=== PATIENT | female | born 1960 | race African-American/Black ===

== ENCOUNTER 2017-01-31 13:12 | Emergency (ER) ==
[2017-01-31 13:22] VITALS: BP 123/76
--- NOTE | 2017-01-31 14:54 | PROVIDER DOCUMENTATION ---
HPI-Respiratory General - General Chief Complaint: Cold Symptoms Stated Complaint: TIGHTNESS OF CHEST, CONGESTED Time Seen by Provider: 01/31/17 14:47 Source: patient, family Allergies/Adverse Reactions: Patient Allergies Allergy/AdvReac Type Severity Reaction Status Date / Time No Known Allergies Allergy Verified 01/31/17 13:22 Home Medications: Home Medication List Medication Instructions Recorded Confirmed Last Taken Type Acetaminophen with Codeine 1 tbs PO PRN PRN 01/31/17 01/31/17 Unknown History [Tylenol with Codeine #3] Albuterol Sulfate Inhaler 2 puff INH Q6H PRN PRN #1 inhaler 01/31/17 Unknown Rx [Ventolin Hfa] Azithromycin [Zithromax] 250 mg PO DAILY #4 tablet 01/31/17 Unknown Rx Benzonatate [Tessalon] 100 mg PO TID PRN PRN #20 capsule 01/31/17 Unknown Rx Methylprednisolone [Medrol Dosepak] 4 mg PO DIRECTED #1 package 01/31/17 Unknown Rx Zolpidem [Ambien] 5 mg PO QHS 01/31/17 01/31/17 Unknown History - History of Present Illness-Resp Nature of Presenting Problem: 57 year old AAF presents with c/o cough x 2 days, non-productive, fever to 101.9 at home, vomiting x 1 this AM after excessive cough. pt reports wheezing, shortness with cough and pain with inspiration/expiration. Quality of Pain: reports: aching (with coughing only) Severity in ED: reports: mild Onset/Duration: reports: 2 days ago Timing: reports: still present, constant, getting worse Context: reports: recent URI Exposure: reports: unknown cause Cough Quality/Degree: reports: severe, dry cough. denies: productive cough, sputum, blood streaked sputum Episode Frequency: occasional episodes Current Respiratory Medication Therapy: Initiated albuterol (pt reports she tried an inhaler she had at home without relief) Modifying Factors: improves with: nothing Associated Symptoms: reports: chest pain/soreness, cough, fever/chills, flu- like symptoms, shortness of breath, short of breath, sore throat, wheezing Similar Symptoms Previously?: Yes Recently seen or treated by another doctor?: No Review of Systems - Adult - REVIEW OF SYSTEMS - ADULT Constitutional: reports: see HPI, chills, fever. denies: fatique Eyes: reports: no symptoms reported. denies: discharge, blurred vision, double vision, redness Ears, Nose, Mouth & Throat: reports: see HPI, throat pain, throat swelling. denies: ear discharge, ear pain, nose pain, loose teeth Cardiovascular: reports: no symptoms reported. denies: chest pain, palpitations , syncope Respiratory: reports: see HPI, cough, shortness of breath, wheezing. denies: chronic cough, dyspnea on exertion, excessive sputum production, hemoptysis, pleurisy Gastrointestinal: reports: see HPI, vomiting. denies: abdominal pain, hematemesis, diarrhea, difficulty swallowing, frequent heartburn, nausea, poor appetite Genitourinary: reports: no symptoms reported. denies: dysuria, hematuria, urgency Musculoskeletal: reports: no symptoms reported. denies: bone pain, joint pain, joint swelling Integumentary: reports: no symptoms reported. denies: hives, mole changes, nail changes Neurological: reports: no symptoms reported. denies: ataxia, dizziness/vertigo , headache/migraines Psychiatric: reports: no symptoms reported Endocrine: reports: no symptoms reported. denies: increased thirst, polyuria Hematologic/Lymphatic: reports: no symptoms reported. denies: swollen lymph nodes Allergic/Immunologic: reports: no symptoms reported. denies: frequent infections All Other Systems: Reviewed and Negative Past History - Adult - PAST MEDICAL HISTORY-ADULT Review of Records: reports: Old Records Reviewed, Nursing Assessment Review, Medications Reviewed, Social history reviewed & non-contributory. Major Childhood Illnesses: reports: denies history Cardiovascular: reports: hyperlipidemia Respiratory: reports: denies history Gastrointestinal: reports: GERD Obstetrical/Gynecological: reports: denies history Genitourinary: reports: denies history Musculoskeletal: reports: denies history Neurological: reports: headaches/migraines Endocrine/Immune: reports: denies history Other Conditions: reports: denies history - PRIOR SURGERIES/PROCEDURES Surgical/Procedure History: reports: cholecystectomy, hysterectomy - PRIOR HOSPITALIZATIONS Prior Hospitalizations: reports: for other non-related - IMMUNIZATION STATUS Childhood Immunizations: See Nurse Assessment Flu Vaccine: See Nurse Assessment - FAMILY HISTORY Family History: reviewed, not pertinent - SOCIAL HISTORY Smoking: denies, quit less than 1 year, cigarettes Substance Use: none/never Alcohol Use Frequency: never Physical Exam-General - PHYSICAL EXAM-ADULT Initial Vital Signs Reviewed: Yes - CONSTITUTIONAL General Appearance: appears well, alert, mild distress, moderate distress. negative: no apparent distress, severe distress - EYES Eyes: pink conjunctivae. negative: conjuctival exudate - HEAD, EARS, NOSE, MOUTH & THROAT HENMT: normocephalic/atraumatic, moist mucous membranes, normal ENT inspection, TMs normal, pharyngeal erythema. negative: pharynx normal, tonsillar exudate, frontal tenderness, maxillary tenderness - NECK Neck: non-tender, full range of motion, supple, normal inspection. negative: C- spine tenderness, limited range of motion, tender lateral, tender midline - RESPIRATORY Respiratory: chest non-tender, no pleuratic chest pain, no respiratory distress , no accessory muscle use, decreased breath sounds, rhonchi, wheezing. negative : lungs clear, normal breath sounds, respiratory distress, accessory muscle use , crackles, rales, stridor - CARDIOVASCULAR Cardiovascular: normal peripheral pulses, regular rate, rhythm, no edema, tachycardia - CHEST (BREASTS) Chest/Breast: tenderness (with deep inspiration) - GASTROINTESTINAL (ABDOMEN) Abdominal Exam: normal bowel sounds, non tender, soft - GENITOURINARY Female Genitalia/Pelvic Exam: deferred Rectal Exam: deferred Hemoccult Exam: deferred - MUSCULOSKELETAL Back Exam: normal inspection, no CVA tenderness, no vertebral tenderness. negative: CVA tenderness, decreased range of motion, swelling, vertebral tenderness Extremity: normal range of motion, non-tender, normal gait, normal inspection, no pedal edema, no calf tenderness, normal capillary refill Peripheral Pulses: radial (R): 3+, radial (L): 3+, dorsalis-pedis (R): 3+, dorsalis-pedis (L): 3+ - SKIN Integumentary: normal color, normal turgor, warm/dry - NEUROLOGIC Neurologic: grossly normal, no motor/sensory deficits - PSYCHIATRIC Psych/Mental Status: normal mood/affect, normal thought content, normal thought process, oriented x 3 Progress - PLAN OF CARE/RESULTS Progress/Plan/Lab Results: Laboratory Tests 01/31/17 01/31/17 15:23 15:23 Influenza A (Rapid) NEGATIVE Influenza B (Rapid) NEGATIVE Group A Strep Rapid NEGATIVE Orders Category Date Time Status cxr [CHEST-2 VIEWS] [RAD] Stat Exams 01/31/17 14:[address] Stat Lab 01/31/17 15:[address] Stat Lab 01/31/17 15:23 Completed Albuterol 2.5MG/Ipratrop 0.5MG [Duoneb (A & A)] Med 01/31/17 14:56 Discontinued 3 ml INH NOW ONE Aerosol Treatments Routine Oth 01/31/17 14:56 Active Aerosol Treatments Stat Oth 01/31/17 14:56 Active Vital Signs - 24 hr 01/31/17 01/31/17 13:17 15:00 Temperature 98.3 F Pulse Rate 110 H 109 H Respiratory 19 20 Rate Blood Pressure 123/76 O2 Sat by Pulse 96 99 Oximetry - REASSESSMENT Reassessment #1 Time Reassessed: 17:01 Status: improving (decreased wheezing, increased air movement bilaterally) - XRAY 1 XRAY Study: Chest Impression: Normal Departure - Departure Time of Disposition Order: 17:02 DIAGNOSIS: Bronchitis Disposition: HOME 01 Certified Medical Emergency: Emergent Condition: Stable Additional Instructions: Follow up with your primary care doctor this week. ED Follow Up Instructions: You have been treated by a care provider in the Emergency Department. These instructions are being provided to you so you can have an understanding of how to care for yourself upon discharge. Upon discharge from the Emergency Department, you are responsible for making arrangements for follow-up care by a physician of your choice. Take all prescribed medications as directed. Return to the Emergency Department immediately for any new or worsening symptoms. You may call the Physician Referral phone number at [phone] to obtain a list of Physicians who are taking new patients. Prescriptions: Methylprednisolone [Medrol Dosepak] 4 mg PO DIRECTED #1 package Benzonatate [Tessalon] 100 mg PO TID PRN PRN #20 capsule PRN Reason: Cough Albuterol Sulfate Inhaler [Ventolin Hfa] 2 puff INH Q6H PRN PRN #1 inhaler PRN Reason: Wheezing Azithromycin [Zithromax] 250 mg PO DAILY #4 tablet Attestation - Physician/ PHUONG Attestation Patient care was provided by Advanced Practice Provider:: Yes Advanced Practice Provider:: Jackson Soto Advanced Practice Provider documentation review:: The Mid-level provider documentation, treatment plan and medical decision making was reviewed by the physician who agrees with all treatment and medical decision making by the MLP.
[2017-01-31] MEDS ORDERED: DUONEB (A & A) INH ONE (14:56)
[2017-01-31] MEDS ORDERED: ZITHROMAX PO ONE (17:02)
[2017-01-31] MEDS ORDERED: PREDNISONE PO ONE (17:02)
[2017-01-31] MEDS ORDERED: TESSALON PO ONE (17:02)
--- NOTE | 2017-01-31 17:33 | Diag Imaging Result Document ---
PROCEDURE NAME: CHEST-2 VIEWS - 01/31/2017 FRONTAL AND LATERAL CHEST, 2 VIEWS: FINDINGS: Compared to 11/06/2015. The lungs are well expanded. The heart is not enlarged. The vessels are not distended. There are no infiltrates. No pleural effusions. There is a granuloma in the mid left lung. No free air beneath the diaphragm. No pneumonia. IMPRESSION: No acute abnormality.
[2017-01-31] MEDS ORDERED: ZOFRAN ODT ONE (17:38)
== END 2017-01-31 17:42 | disposition home or self-care (01) ==
LOC: P.ED 13:12
DX: J40 Bronchitis, not specified as acute or chronic (principal); R07.89 Other chest pain; R09.81 Nasal congestion; R05 Cough; R50.9 Fever, unspecified; R11.10 Vomiting, unspecified; R06.2 Wheezing; R06.02 Shortness of breath; R07.1 Chest pain on breathing; J02.9 Acute pharyngitis, unspecified; R22.1 Localized swelling, mass and lump, neck; R00.0 Tachycardia, unspecified; E78.5 Hyperlipidemia, unspecified; Z79.899 Other long term (current) drug therapy; Z87.891 Personal history of nicotine dependence
CPT/HCPCS: 71020; 87081; 87430; 87804; 94640; 99284; J7512